=== PATIENT | male | born 1955 | race Caucasian/White ===

== ENCOUNTER 2018-04-13 13:45 | Outpatient (CLI) | payer BC ==
[2018-04-13 15:41] LABS: Hemoglobin 14.7 g/dL (14.0-18.0); Mean Corpuscular HGB CONC 32.7 g/dL (32.0-36.0); Mean Corpuscular Hemoglobin 33.3 pg (27.0-31.0); Mean Platelet Volume 9.2 fL (7.4-10.4); Platelet Count 173 thou/uL (130-400); RBC Distribution Width 11.6 % (11.5-14.5); Red Blood Cell (RBC) Count 4.42 mill/uL (4.70-6.10); White Blood Cell (WBC) Count 5.7 thou/uL (4.8-10.8)
[2018-04-13 15:57] LABS: Anion Gap 11 mmol/L (10-20); BUN (Urea Nitrogen) 15 mg/dL (8.4-25.7); Calc. Creatinine Clearance 0 mL/min (70-130); Calcium 9.6 mg/dL (7.8-10.44); Carbon Dioxide 26 mmol/L (23-31); Chloride 107 mmol/L (98-107); Estimated GFR-MDRD 63; Glucose 91 mg/dL (80-115); Potassium 3.9 mmol/L (3.5-5.1); Sodium 140 mmol/L (136-145)
--- NOTE | 2018-04-13 22:08 | EKG ---
Test Reason : Blood Pressure : / mmHG Vent. Rate : 059 BPM Atrial Rate : 059 BPM P-R Int : 184 ms QRS Dur : 110 ms QT Int : 414 ms P-R-T Axes : 043 -38 000 degrees QTc Int : 409 ms Sinus bradycardia Left axis deviation Cannot rule out Anterior infarct , age undetermined Abnormal ECG No previous ECGs available Confirmed by Alvaro STEPHENSON ([id number]) on 04/13/2018 10:08:25 PM Referred By: WALDEMAR Confirmed By:Alvaro STEPHENSON
== END 2018-04-13 13:46 | disposition home or self-care (01) ==
LOC: LABBT 13:45
PROVIDERS: ATTEND Urology
DX: Z01.818 Encounter for other preprocedural examination (principal); N20.0 Calculus of kidney; N39.41 Urge incontinence; N29 Other disorders of kidney and ureter in diseases classified elsewhere; R31.21 Asymptomatic microscopic hematuria; R35.1 Nocturia; Q61.9 Cystic kidney disease, unspecified
CPT/HCPCS: 80048; 81001; 85027; 87086; 93005; 93010

== ENCOUNTER 2018-04-26 10:47 | Day surgery (SDC) | payer BC ==
[2018-04-13 14:04] VITALS: BMI 49.4
[2018-04-26] MEDS ORDERED: Iothalamate Meglumine 60% 50 ML VIAL FS ONE (11:47)
[2018-04-26] MEDS ORDERED: CEFAZOLIN 2 GM/50 ML BAG ONE (12:21)
--- NOTE | 2018-04-26 12:41 | RAD ---
KUB: History: Pre-operative exam. FINDINGS/IMPRESSION: There are post op changes of cholecystectomy. There is a suggestion of a calcific density in the proj ection of the left kidney suspicious for left renal calculus. There are degenerative changes in the s pine. The bowel gas pattern is unremarkable. POS: JALEN
[2018-04-26] MEDS ORDERED: Fentanyl 100 MCG/2 ML VIAL ONE (13:05)
[2018-04-26] MEDS ORDERED: Furosemide 20 MG/2 ML VIAL ONE (14:04)
--- NOTE | 2018-04-27 01:19 | OP ---
DATE OF PROCEDURE: 04/26/2018 PREOPERATIVE DIAGNOSIS: Right renal stones. POSTOPERATIVE DIAGNOSIS: Right renal stones. PROCEDURES PERFORMED: Cystoscopy, right retrograde pyelogram, insertion of right ureteral stent, and right extracorporeal shockwave lithotripsy. ANESTHESIA: General with laryngeal mask airway. FINDINGS: Somewhat malrotated collecting system, but no ureteral calcifications noted. No hydronephrosis. A 6 x 26 double-J stent placed and 3000 shocks delivered to all of the renal stones. ESTIMATED BLOOD LOSS: No blood loss. SPECIMENS: No specimens. COMPLICATIONS: No complications. INDICATION FOR PROCEDURE: The patient is a 63-year-old male who was followed in the office for stone disease and noted to have significant stone burden on the right and some on the left and opted for definitive therapy on the right. DESCRIPTION OF PROCEDURE: The patient was brought into the room by Anesthesia, left on table in supine position. After achieving general anesthetic, the legs were placed in lithotomy position and his perineum was prepped and draped in a sterile fashion. Using a 21-Arabic cystoscope and 30-degree lens, the urethra was traversed and the bladder was inspected. No lesions were noted. The ureteral orifices were noted in normal position. However, at this time, the fluoro component of the Dornier machine malfunctioned; so for a significant amount of time, we were trying to get this working and we opted to get a C-arm in and I decided that I would ultimately just place the stent if we are unable to do the shockwave therapy today and plan shockwave therapy in a week and stent removal a week after that; however, we were ultimately finally able to get the Dornier working, so the procedure continued as planned. A retrograde pyelogram revealed no filling defects in the ureter. 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 The scope was broken apart, bladder drained, and then removed in its entirety. The patient tolerated the procedure well and was then repositioned supine fully. At this point, a total of 3000 shocks at a maximum power of 4-5 out 6 at a maximum rate of 60 to 90 per minute were then delivered with them dividing up in the following way; 700 to an upper pole 6-mm stone, 400 to a 5-mm stone, very close to it; 300 to a mid-pole stone on lateral, 400 to a mid-pole stone medial, and 1000 to a lower pole stone approximately 6 to 7 mm, which was the largest. The patient tolerated the procedure well and was then awakened and transferred to PACU in stable condition. Job ID: [id number] [facility]
== END 2018-04-26 16:30 | disposition home or self-care (01) ==
LOC: SDC 10:47
PROVIDERS: ATTEND Urology
PROC: 0TF3XZZ Fragmentation in Right Kidney Pelvis, External Approach (ICD-10-PCS; principal; 2018-04-26)
PROC: 0T768DZ Dilation of Right Ureter with Intraluminal Device, Via Natural or Artificial Opening Endoscopic (ICD-10-PCS; principal; 2018-04-26)
DX: N20.0 Calculus of kidney (principal); M17.10 Unilateral primary osteoarthritis, unspecified knee; Z87.891 Personal history of nicotine dependence; Z98.890 Other specified postprocedural states; Z79.899 Other long term (current) drug therapy
CPT/HCPCS: 74018; C1758; C1769; J1940; J3010; Q9961

== ENCOUNTER 2018-06-27 07:18 | Outpatient (CLI) | payer BC ==
--- NOTE | 2018-06-27 09:22 | RAD ---
ABDOMEN ONE VIEW: History: Renal stone. Comparison: 05-24-18 FINDINGS: Bowel gas pattern nonspecific. Metallic clips over the gallbladder fossa. Irregular calcifications ov erlying each renal shadow are similar in appearance to the prior exam. No stones are reliably demonst rated over the course of either ureter. IMPRESSION: Bilateral renal calculi appear stable. POS: TPC
== END 2018-06-27 07:19 | disposition home or self-care (01) ==
LOC: BICRAD 07:18
PROVIDERS: ATTEND Urology
DX: N20.0 Calculus of kidney (principal); R82.994 Hypercalciuria
CPT/HCPCS: 36415; 74018; 83970

== ENCOUNTER 2018-11-03 07:45 | Outpatient (CLI) | payer BC ==
--- NOTE | 2018-11-03 08:16 | RAD ---
EXAM: Abdomen one view: HISTORY: Calculus of kidney COMPARISON: 06/27/2018 FINDINGS: Large circumscribed mass off the lateral aspect of the upper right kidney consistent with known renal cyst. No evidence for large or small bowel obstruction. No free intraperitoneal air . Multiple bilateral renal calculi, stable. IMPRESSION: No acute process.
[2018-11-03 08:48] LABS: Bilirubin Negative (Negative); Blood, Urine Negative (Negative); Clarity Clear (Clear); Glucose, Urine (Dipstick) Negative (Negative); Leukocyte Trace (Negative); Nitrite Negative (Negative); Protein, Urine (Dipstick) Negative (Neg-Trace)
[2018-11-03 09:38] LABS: Bacteria/HPF None Seen HPF (None Seen); Hyaline Casts/LPF NONE SEEN LPF (0-3 Hyaline); RBC/HPF 0-3 HPF (0-3); Squamous Epithelial 0-3 HPF (0-3)
== END 2018-11-03 07:46 | disposition home or self-care (01) ==
LOC: SCSRAD 07:45
PROVIDERS: ATTEND Urology
DX: N20.0 Calculus of kidney (principal)
CPT/HCPCS: 74018; 81001; 87086

== ENCOUNTER 2019-05-22 06:35 | Outpatient (CLI) | payer BC ==
[2019-05-22 13:01] LABS: Hemoglobin 14.6 g/dL (14.0-18.0); Mean Corpuscular HGB CONC 33.7 g/dL (32.0-36.0); Mean Corpuscular Hemoglobin 34.5 pg (27.0-31.0); Mean Platelet Volume 9.1 fL (7.4-10.4); Platelet Count 148 thou/uL (130-400); RBC Distribution Width 12.7 % (11.5-14.5); Red Blood Cell (RBC) Count 4.24 mill/uL (4.70-6.10); White Blood Cell (WBC) Count 5.5 thou/uL (4.8-10.8)
[2019-05-22 13:14] LABS: Bacteria/HPF None Seen HPF (None Seen); Bilirubin Negative (Negative); Blood, Urine 2+ (Negative); Clarity Clear (Clear); Glucose, Urine (Dipstick) Normal (Negative); Leukocyte 25 Leu/uL (Negative); Nitrite Negative (Negative); Protein, Urine (Dipstick) Negative (Neg-Trace); Squamous Epithelial None Seen HPF (0-3); Urobilinogen Normal mg/dL (Less than 2)
[2019-05-22 13:29] LABS: Anion Gap 13 mmol/L (10-20); BUN (Urea Nitrogen) 21 mg/dL (8.4-25.7); Calc. Creatinine Clearance 0 mL/min (70-130); Calcium 9.4 mg/dL (7.8-10.44); Carbon Dioxide 24 mmol/L (23-31); Chloride 106 mmol/L (98-107); Estimated GFR-MDRD 56; Glucose 106 mg/dL (80-115); Potassium 3.9 mmol/L (3.5-5.1); Sodium 139 mmol/L (136-145)
[2019-05-22 13:37] LABS: PTT 25.9 SEC (22.9-36.1); Prothrombin Time 13.2 SEC (12.0-14.7)
--- NOTE | 2019-05-24 13:38 | EKG ---
Test Reason : Blood Pressure : / mmHG Vent. Rate : 067 BPM Atrial Rate : 067 BPM P-R Int : 192 ms QRS Dur : 104 ms QT Int : 406 ms P-R-T Axes : 061 -34 013 degrees QTc Int : 429 ms Normal sinus rhythm Left axis deviation Cannot rule out Anterior infarct (cited on or before 13-APR-2018) Abnormal ECG When compared with ECG of 13-APR-2018 14:19, No significant change was found Confirmed by NAMRATA COELHO ([id number]) on 05/24/2019 1:37:19 PM Referred By: IZABELA Confirmed By:NAMRATA COELHO
== END 2019-05-22 06:36 | disposition home or self-care (01) ==
LOC: LABBT 06:35
PROVIDERS: ATTEND Urology
DX: Z01.818 Encounter for other preprocedural examination (principal); N20.0 Calculus of kidney
CPT/HCPCS: 80048; 81001; 85027; 85610; 85730; 87086; 93005; 93010

== ENCOUNTER 2019-05-30 07:14 | Day surgery (SDC) | payer BC ==
[2019-05-22 10:55] VITALS: BMI 48.1
[2019-05-30] MEDS ORDERED: Levofloxacin 500 mg/D5W 100 ml Premix Bag ONE (08:34)
[2019-05-30] MEDS ORDERED: Fentanyl 100 MCG/2 ML VIAL ONE (10:22)
[2019-05-30] MEDS ORDERED: Midazolam HCl 2 mg/2 ml Vial ONE (10:22)
[2019-05-30] MEDS ORDERED: Sodium Chloride 0.9% 100 ML ONE (10:27)
[2019-05-30] MEDS ORDERED: PROPOFOL 200 MG/20 ML VIAL ONE (10:37)
[2019-05-30] MEDS ORDERED: Lidocaine 1% PF 5 ML VIAL ONE (10:37)
[2019-05-30] MEDS ORDERED: Rocuronium Bromide 10 MG/ML (10ML VIAL) ONE (10:37)
[2019-05-30] MEDS ORDERED: Glycopyrrolate 0.2 MG/ML 5 ML SYRINGE ONE (10:37)
[2019-05-30] MEDS ORDERED: Iothalamate Meglumine 60% 50 ML VIAL FS ONE (11:02)
[2019-05-30] MEDS ORDERED: SUGAMMADEX SODIUM 200 MG/2 ML VIAL ONE (11:38)
[2019-05-30] MEDS ORDERED: Phenazopyridine HCl 97.5 MG TABLET ONE ×2 (11:56)
--- NOTE | 2019-05-30 12:08 | RAD ---
EXAM: XR IVP Retrograde PROVIDED CLINICAL HISTORY: Ureteral stent placement COMPARISON: Abdominal radiograph on 11/03/2018. FINDINGS/IMPRESSION: Single fluoroscopic image of the pelvis is submitted for interpretation. The provided image demonstra mao ureteral stents in place, but the most proximal aspect of each ureteral stent is not imaged. There is partial opacification of the urinary bladder. Correlation with intraoperative findings is re commended.
[2019-05-30] MEDS ORDERED: Morphine 4 MG/ML VIAL ONE ×2 (12:22→12:55)
[2019-05-30] MEDS ORDERED: HYDROcodone/Acetaminophen 5/325 mg Tablet ONE ×2 (14:45→14:52)
--- NOTE | 2019-05-30 15:40 | OP ---
DATE OF PROCEDURE: 05/30/2019 PREOPERATIVE DIAGNOSES: Right ureteral and left renal stones. POSTOPERATIVE DIAGNOSES: Right ureteral stone, right renal stone, left renal stones, penile urethral stricture, enlarged prostate. ANESTHESIA: General. SPECIMEN: Right ureteral stone fragments. COMPLICATIONS: None. BLOOD LOSS: 10 mL. DESCRIPTION OF PROCEDURE: After informed consent, the patient was taken to the operating room, transferred to the table under his own power. Anesthesia was established. A time-out was performed showing the correct patient, site, and procedure. Preoperative antibiotics were administered. He was prepped and draped in the lithotomy position. I performed a rectal exam showing a 50 g prostate, smooth and symmetric with no nodules or induration. I then switched gloves. I inserted the semi-rigid ureteroscope through the urethra noting a loose penile urethral stricture. The scope was then passed down to the prostatic urethra noting large coapting lateral lobes with no median lobe. The right ureteral orifice was cannulated with a wire with some difficulty and upon passing the scope into the distal right ureter, there was a large stone lodged near the UVJ. A 200 micron laser fiber was selected and used to fragment this into multiple small pieces. The Nitinol basket was used to retrieve the stone fragments from the ureter leaving most in his bladder, but removing several to pass off as specimen. The scope was then passed into the proximal ureter, noting no further stone fragments. There did appear to be a calcification in the right kidney and so a 36 cm access sheath was placed over the wire into the proximal ureter under fluoroscopic guidance, and a retrograde pyelogram performed showing hydronephrosis. The flexible ureteroscope was then passed into the right kidney, where a small stone was identified and the laser fiber used to dust this into clinically insignificant fragments. There were no further stones in the right renal pelvis. The scope and access sheath were withdrawn leaving the wire in place, and a 6 x 28 double-J ureteral stent was placed over the wire with a curl in the kidney and curl in the bladder under fluoroscopic guidance. The ureteroscope was then reinserted into the bladder, and the left ureteral orifice cannulated with a wire, which was negotiated up to the level of the renal pelvis. The scope was then passed alongside the wire and retrograde pyelogram performed showing no hydronephrosis, hydroureter, or filling defects. There were no obvious calcifications on recovery engineer imaging on the left side. The scope was then passed into the proximal ureter noting no stones. The scope was withdrawn, and the access sheath was placed into the left ureter under fluoroscopic guidance. The flexible ureteroscope was then guided into the left kidney, which was systematically examined, where four small stones were identified, the largest about 5 mm in size. The 200 micron laser fiber was utilized to dust all of these into clinically insignificant fragments. There were no fragments that required removal at this point. The scope and access sheath were withdrawn leaving the wire in place. A 6 x 28 double-J ureteral stent was passed over the wire with a curl in the kidney and curl in the bladder under fluoroscopic guidance. The bladder was then drained. The patient was awoken from anesthesia, transferred back to his hospital bed and taken to PACU in stable condition, where he will discharge home upon recovery. Job ID: [id number]
== END 2019-05-30 15:00 | disposition home or self-care (01) ==
LOC: SDC 07:14
PROVIDERS: ATTEND Urology
PROC: 0TF68ZZ Fragmentation in Right Ureter, Via Natural or Artificial Opening Endoscopic (ICD-10-PCS; principal; 2019-05-30)
PROC: 0T788DZ Dilation of Bilateral Ureters with Intraluminal Device, Via Natural or Artificial Opening Endoscopic (ICD-10-PCS; principal; 2019-05-30)
PROC: 0TF48ZZ Fragmentation in Left Kidney Pelvis, Via Natural or Artificial Opening Endoscopic (ICD-10-PCS; principal; 2019-05-30)
PROC: 0TF38ZZ Fragmentation in Right Kidney Pelvis, Via Natural or Artificial Opening Endoscopic (ICD-10-PCS; principal; 2019-05-30)
DX: N13.2 Hydronephrosis with renal and ureteral calculous obstruction (principal); N40.1 Benign prostatic hyperplasia with lower urinary tract symptoms; R35.0 Frequency of micturition; R39.15 Urgency of urination; R39.12 Poor urinary stream; N35.919 Unspecified urethral stricture, male, unspecified site; M17.0 Bilateral primary osteoarthritis of knee; Z87.891 Personal history of nicotine dependence; Z79.899 Other long term (current) drug therapy
CPT/HCPCS: 74420; 82365; 88300; J1956; J2001; J2250; J2270; J2704; J3010; J3490

== ENCOUNTER 2020-03-22 07:40 | Outpatient (CLI) | payer BC ==
--- NOTE | 2020-03-22 08:50 | ULT ---
BILATERAL RENAL ULTRASOUND: Date: 03/22/2020 HISTORY: Renal calculi. COMPARISON: 04/23/2019 exam. FINDINGS: This exam is technically difficult due to body habitus and bowel gas. The right kidney measures 10.5 cm. The left kidney measures 12.7 cm. Both kidneys are obscured. No ob struction is seen. Cystic area seen lateral to the right kidney. In reviewing the previous CT examina tion of 03/07/2018, this is related to the right kidney. This cyst measures 7.9 cm in size on the cur rent study, which appears to be a slight increase since the prior exam. It is difficult to show a def inite attachment to the kidney due to the technical difficulty of this exam. The bladder is incompletely distended. IMPRESSION: 1. No obstruction of either kidney. 2. Large right renal cyst. POS: REMY
== END 2020-03-22 07:41 | disposition home or self-care (01) ==
LOC: BICULT 07:40
PROVIDERS: ATTEND Urology
DX: N20.0 Calculus of kidney (principal); N29 Other disorders of kidney and ureter in diseases classified elsewhere; R31.21 Asymptomatic microscopic hematuria; N28.1 Cyst of kidney, acquired
CPT/HCPCS: 76770

== ENCOUNTER 2020-07-04 09:12 | Outpatient (CLI) | payer BC ==
[2020-07-04 12:05] LABS: Mean Corpuscular HGB CONC 32.2 g/dL (32.0-36.0); Mean Corpuscular Hemoglobin 33.2 pg (27.0-33.0); Mean Corpuscular Volume 103.1 fl (81.2-95.1); Mean Platelet Volume 11.1 fl (7.4-10.4); Platelet Count 184 10x3/uL (150-450); RBC Distribution Width 13.1 % (11.5-14.5); Red Blood Cell (RBC) Count 4.22 10x6/uL (4.32-5.72); White Blood Cell (WBC) Count 5.3 10x3/uL (3.5-10.5)
[2020-07-04 12:14] LABS: Anion Gap 16 mmol/L (10-20); BUN (Urea Nitrogen) 20 mg/dL (8.4-25.7); Calc. Creatinine Clearance 0 mL/min (70-130); Calcium 9.5 mg/dL (7.8-10.44); Carbon Dioxide 22 mmol/L (23-31); Chloride 107 mmol/L (98-107); Glucose 95 mg/dL (80-115); Potassium 4.1 mmol/L (3.5-5.1); Sodium 141 mmol/L (136-145)
[2020-07-04 13:04] LABS: Bilirubin Neg (Negative); Blood, Urine 25 (Negative); Clarity Clear (Clear); Glucose, Urine (Dipstick) Normal (Negative); Ketone, Urine Negative (Negative); Leukocyte Negative (Negative); Nitrite Negative (Negative); Protein, Urine (Dipstick) Negative (Neg-Trace)
[2020-07-04 13:19] LABS: Bacteria/HPF None Seen HPF (None Seen); RBC/HPF 0-3 HPF (0-3); Squamous Epithelial None Seen HPF (0-3); WBC/HPF None Seen HPF (0-3)
[2020-07-04 17:26] LABS: SARS-CoV-2 PCR by NAA Not Detected (NotDetected)
--- NOTE | 2020-07-04 21:04 | EKG ---
Test Reason : Blood Pressure : / mmHG Vent. Rate : 066 BPM Atrial Rate : 066 BPM P-R Int : 194 ms QRS Dur : 108 ms QT Int : 404 ms P-R-T Axes : 057 -44 -02 degrees QTc Int : 423 ms Normal sinus rhythm Left axis deviation Abnormal ECG No previous ECGs available Confirmed by Alvaro STEPHENSON ([id number]) on 07/04/2020 9:04:31 PM Referred By: IZABELA Confirmed By:Alvaro STEPHENSON
== END 2020-07-04 09:13 | disposition home or self-care (01) ==
LOC: LABBT 09:12
PROVIDERS: ATTEND Urology
DX: Z01.818 Encounter for other preprocedural examination (principal); N39.41 Urge incontinence; N20.0 Calculus of kidney; E66.01 Morbid (severe) obesity due to excess calories
CPT/HCPCS: 80048; 81001; 85027; 87086; 87635; 93005; 93010; U0003; U0005

== ENCOUNTER 2020-07-09 06:22 | Observation (INO) | payer BC ==
[2020-07-09] MEDS ORDERED: Levofloxacin 500 mg/D5W 100 ml Premix Bag ONE (07:12)
[2020-07-09] MEDS ORDERED: Fentanyl 100 MCG/2 ML VIAL ONE (08:31)
[2020-07-09] MEDS ORDERED: Promethazine HCl 25 MG/ML VIAL IM PRN (09:31)
[2020-07-09] MEDS ORDERED: Promethazine HCl 25 MG/ML VIAL SLOW IVP PRN (09:31)
[2020-07-09] MEDS ORDERED: Ondansetron HCl/PF 4 MG/2 ML Vial IVP PRN (09:31)
[2020-07-09] MEDS ORDERED: Succinylcholine 200 MG/10 ml SYRINGE FS ONE (10:00)
[2020-07-09] MEDS ORDERED: Ondansetron PF 4 MG/2 ML Vial ONE (10:00)
[2020-07-09] MEDS ORDERED: Lidocaine 1% PF 5 ML VIAL ONE ×2 (10:00)
[2020-07-09] MEDS ORDERED: Albuterol Sulfate HFA (OR ONLY) ONE (10:00)
[2020-07-09] MEDS ORDERED: Glycopyrrolate 0.2 MG/ML 5 ML SYRINGE ONE (10:00)
[2020-07-09] MEDS ORDERED: Dexamethasone 20 MG/5 ML VIAL ONE (10:00)
[2020-07-09] MEDS ORDERED: Rocuronium Bromide 10 MG/ML (10ML VIAL) ONE (10:00)
[2020-07-09] MEDS ORDERED: PROPOFOL 200 MG/20 ML VIAL ONE (10:00)
[2020-07-09] MEDS ORDERED: diphenhydrAMINE 50 MG/ML VIAL IVP PRN (10:41)
[2020-07-09] MEDS ORDERED: Ketorolac Tromethamine 30 MG/ML VIAL IVP PRN (10:41)
[2020-07-09] MEDS ORDERED: Ondansetron PF 4 MG/2 ML Vial IVP PRN (10:41)
[2020-07-09] MEDS ORDERED: Hyoscyamine Sulfate SL 0.125 mg Tablet SL PRN (10:41)
[2020-07-09] MEDS ORDERED: Zolpidem Tartrate 5 MG TAB PO PRN (10:41)
[2020-07-09 14:56] VITALS: BMI 49.3
[2020-07-09] MEDS: Sodium Chloride 0.9% 1,000 ML IV SCH (15:45)
[2020-07-09] MEDS: Famotidine/PF 20 mg/2ml Vial SLOW IVP SCH (21:41)
[2020-07-09] MEDS: HYDROcodone/Acetaminophen 5/325 mg Tablet PO PRN (21:43)
[2020-07-09] MEDS: Docusate 100 MG CAP PO SCH (21:43)
[2020-07-10] MEDS: Sodium Chloride 0.9% 1,000 ML IV SCH (04:46)
[2020-07-10] MEDS: HYDROcodone/Acetaminophen 5/325 mg Tablet PO PRN (04:48)
[2020-07-10] MEDS ORDERED: Amlodipine 5 MG TAB PO SCH (09:00)
[2020-07-10] MEDS ORDERED: Amiodarone 200 MG TAB PO SCH (09:00)
[2020-07-10] MEDS: Docusate 100 MG CAP PO SCH (09:00)
[2020-07-10] MEDS ORDERED: Rosuvastatin 10 MG TAB PO SCH (09:00)
[2020-07-10] MEDS: Famotidine/PF 20 mg/2ml Vial SLOW IVP SCH (09:04)
[2020-07-10 14:15] VITALS: BP 115/75; TEMP 97.9
== END 2020-07-10 14:06 | disposition home or self-care (01) ==
LOC: SDC 06:22 → T4-B 10:41
PROVIDERS: ADMIT Urology; ATTEND Urology
PROC: 0VT08ZZ Resection of Prostate, Via Natural or Artificial Opening Endoscopic (ICD-10-PCS; principal; 2020-07-10)
DX: N40.1 Benign prostatic hyperplasia with lower urinary tract symptoms (principal); N39.41 Urge incontinence; N13.8 Other obstructive and reflux uropathy; N41.1 Chronic prostatitis; M17.9 Osteoarthritis of knee, unspecified; E66.01 Morbid (severe) obesity due to excess calories; Z68.42 Body mass index [BMI] 45.0-49.9, adult; Z87.891 Personal history of nicotine dependence; Z79.899 Other long term (current) drug therapy
CPT/HCPCS: 88305; 96374; 96376; G0378; J1100; J1956; J2405; J2704; J3010; S0028

== ENCOUNTER 2020-07-20 09:56 | Emergency (ER) | payer BC ==
[2020-07-20 10:38] LABS: ALT (SGPT) 24 U/L (8-55); AST (SGOT) 23 U/L (5-34); Alkaline Phosphatase 73 U/L (40-110); Anion Gap 15 mmol/L (10-20); BUN (Urea Nitrogen) 30 mg/dL (8.4-25.7); Bilirubin, Total 2.3 mg/dL (0.2-1.2); Calc. Creatinine Clearance 0 mL/min (70-130); Calcium 9.2 mg/dL (7.8-10.44); Carbon Dioxide 18 mmol/L (23-31); Chloride 106 mmol/L (98-107); Globulin 2.9 g/dL (2.4-3.5); Glucose 97 mg/dL (80-115); Potassium 4.3 mmol/L (3.5-5.1); Protein, Total 6.9 g/dL (5.8-8.1); Sodium 135 mmol/L (136-145)
[2020-07-20 10:39] LABS: #Basophils 0.1 thou/uL (0.0-0.2); #Eosinphils 0.3 thou/uL (0.0-0.7); #Lymphocytes 1.5 thou/uL (1.20-3.40); #Monocytes 0.9 thou/uL (0.11-0.59); #Neutrophils 5.7 thou/uL (1.40-6.50); %Basophils 0.7 % (0.0-1.0); %Eosinophils 3.3 % (0.0-10.0); %Lymphocytes 17.7 % (21.0-51.0); %Monocytes 10.9 % (0.0-10.0); %Neutrophils 67.4 % (42.0-75.0); Mean Corpuscular HGB CONC 33.8 g/dL (32.0-36.0); Mean Corpuscular Hemoglobin 34.9 pg (27.0-31.0); Mean Platelet Volume 8.5 fL (7.4-10.4); Platelet Count 157 thou/uL (130-400); RBC Distribution Width 12.1 % (11.5-14.5); Red Blood Cell (RBC) Count 4.31 mill/uL (4.70-6.10); White Blood Cell (WBC) Count 8.4 thou/uL (4.8-10.8)
[2020-07-20 11:42] LABS: Bacteria/HPF None Seen HPF (None Seen); Bilirubin Negative (Negative); Blood, Urine 3+ (Negative); Clarity Turbid (Clear); Glucose, Urine (Dipstick) Normal (Negative); Ketone, Urine Negative (Negative); Leukocyte 75 Leu/uL (Negative); Nitrite Negative (Negative); Protein, Urine (Dipstick) 30 mg/dL (Neg-Trace); RBC/HPF Greater than 50 HPF (0-3); Squamous Epithelial 0-3 HPF (0-3); Urobilinogen Normal mg/dL (Less than 2); pH, Urine 5.5 (5.0-9.0)
[2020-07-20] MEDS ORDERED: HYDROcodone/Acetaminophen 5/325 mg Tablet ONE (12:21)
== END 2020-07-20 13:46 | disposition home or self-care (01) ==
LOC: ERS 09:56
DX: N39.0 Urinary tract infection, site not specified (principal); N32.89 Other specified disorders of bladder; I10 Essential (primary) hypertension; F17.220 Nicotine dependence, chewing tobacco, uncomplicated
CPT/HCPCS: 36415; 51798; 80053; 81003; 81015; 85025; 87086

== ENCOUNTER 2021-04-22 12:20 | Outpatient (CLI) | payer BC ==
[2021-04-22 14:46] LABS: Bilirubin Neg (Negative); Blood, Urine 150 (Negative); Clarity Clear (Clear); Glucose, Urine (Dipstick) Normal (Negative); Ketone, Urine Negative (Negative); Leukocyte 25 (Negative); Nitrite Negative (Negative); Protein, Urine (Dipstick) 15 mg/dl (Neg-Trace); Specific Gravity, Urine 1.015 (1.002-1.036); pH, Urine 6.5 (5.0-9.0)
[2021-04-22 14:51] LABS: Hemoglobin 14.5 g/dL (13.5-17.5); Mean Corpuscular HGB CONC 32.2 g/dL (32.0-36.0); Mean Corpuscular Hemoglobin 33.6 pg (27.0-33.0); Mean Corpuscular Volume 104.4 fl (81.2-95.1); Mean Platelet Volume 11.7 fl (7.4-10.4); Platelet Count 183 10x3/uL (150-450); RBC Distribution Width 12.2 % (11.5-14.5); Red Blood Cell (RBC) Count 4.31 10x6/uL (4.32-5.72); White Blood Cell (WBC) Count 5.9 10x3/uL (3.5-10.5)
[2021-04-22 15:15] LABS: Anion Gap 13 mmol/L (10-20); BUN (Urea Nitrogen) 12 mg/dL (8.4-25.7); Calc. Creatinine Clearance 0 mL/min (70-130); Calcium 9.1 mg/dL (7.8-10.44); Carbon Dioxide 22 mmol/L (23-31); Chloride 110 mmol/L (98-107); Glucose 80 mg/dL (80-115); Sodium 141 mmol/L (136-145)
[2021-04-22 15:23] LABS: Bacteria/HPF None Seen HPF (None Seen); Mucous/LPF 1+ LPF (<2+); Squamous Epithelial 0-3 HPF (0-3); WBC/HPF 0-3 HPF (0-3)
[2021-04-23 00:41] LABS: SARS-CoV-2 PCR by NAA Not Detected (NotDetected)
== END 2021-04-22 12:21 | disposition home or self-care (01) ==
LOC: LABBT 12:20
PROVIDERS: ATTEND Urology
DX: Z01.818 Encounter for other preprocedural examination (principal); N40.0 Benign prostatic hyperplasia without lower urinary tract symptoms; Z20.822 Contact with and (suspected) exposure to COVID-19
CPT/HCPCS: 80048; 81001; 85027; 87086; 93005; 93010; U0003; U0005

== ENCOUNTER 2021-04-25 05:41 | Day surgery (SDC) | payer BC ==
[2021-04-24 11:55] VITALS: BMI 50.1
[2021-04-25] MEDS ORDERED: Levofloxacin 500 mg/D5W 100 ml Premix Bag ONE (06:44)
[2021-04-25] MEDS ORDERED: Fentanyl 100 MCG/2 ML VIAL ONE ×2 (07:16→08:31)
[2021-04-25] MEDS ORDERED: Glycopyrrolate 0.2 MG/ML 5 ML SYRINGE ONE (07:28)
[2021-04-25] MEDS ORDERED: Dexamethasone 20 MG/5 ML VIAL ONE (07:28)
[2021-04-25] MEDS ORDERED: PROPOFOL 200 MG/20 ML VIAL ONE (07:28)
[2021-04-25] MEDS ORDERED: Lidocaine 1% PF 5 ML VIAL ONE (07:28)
[2021-04-25] MEDS ORDERED: Succinylcholine 200 MG/10 ml SYRINGE FS ONE (07:28)
[2021-04-25] MEDS ORDERED: Ondansetron PF 4 MG/2 ML Vial ONE (07:28)
[2021-04-25] MEDS ORDERED: Phenylephrine 10 MG/ML VIAL ONE (07:28)
[2021-04-25] MEDS ORDERED: Ketorolac Tromethamine 30 MG/ML VIAL ONE (08:16)
[2021-04-25] MEDS ORDERED: Phenazopyridine HCl 100 MG TAB ONE (08:16)
[2021-04-25] MEDS ORDERED: Oxybutynin 5 MG TAB ONE (08:16)
== END 2021-04-25 09:45 | disposition home or self-care (01) ==
LOC: SDC 05:41
PROVIDERS: ATTEND Urology
PROC: 0VT08ZZ Resection of Prostate, Via Natural or Artificial Opening Endoscopic (ICD-10-PCS; principal; 2021-04-25)
DX: N40.1 Benign prostatic hyperplasia with lower urinary tract symptoms (principal); N42.89 Other specified disorders of prostate; R31.0 Gross hematuria; R39.16 Straining to void; R39.15 Urgency of urination; R39.12 Poor urinary stream; R35.0 Frequency of micturition; I48.91 Unspecified atrial fibrillation; M17.0 Bilateral primary osteoarthritis of knee; Z87.891 Personal history of nicotine dependence; Z79.01 Long term (current) use of anticoagulants; Z79.899 Other long term (current) drug therapy
CPT/HCPCS: 88305; J1100; J1885; J1956; J2370; J2405; J2704; J3010